=== PATIENT | female | born 1990 | race Caucasian/White ===

== ENCOUNTER 2020-08-12 08:00 | Inpatient (IN) ==
[2020-08-12] MEDS ORDERED: Lidocaine 1% 20 ML MDV ID PRN (09:16)
[2020-08-12] MEDS ORDERED: Famotidine 20 MG/2 ML VIAL IVP PRN (09:16)
[2020-08-12] MEDS ORDERED: Metoclopramide 10 MG/2 ML VIAL IVP PRN (09:16)
[2020-08-12] MEDS ORDERED: *HR* FentaNYL (PF) 100 MCG/2 ML VIAL IVP PRN (09:16)
[2020-08-12] MEDS ORDERED: Ondansetron 4 MG/2 ML VIAL IVP PRN (09:16)
[2020-08-12] MEDS ORDERED: Azithromycin 500 MG in 0.9 % Sodium Chloride 250 ML IVPB ONE (09:16)
[2020-08-12] MEDS ORDERED: Naloxone 0.4 MG/ML INJ IVP PRN (09:16)
[2020-08-12] MEDS ORDERED: miSOPROStoL 25 MCG TABLET PO PRN (09:20)
[2020-08-12] MEDS ORDERED: D5% in 0.45% NACL 1,000 ML IVC SCH (09:30)
[2020-08-12] MEDS ORDERED: Ringers Solution, Lactated 500 ML ONE (09:41)
[2020-08-12 10:23] LABS: Basophils # 0.1 K/mcL (0.0-0.2); Basophils % 0.7 %; Eosinophils # 0.1 K/mcL (0.0-0.6); Eosinophils % 1.5 %; Hematocrit 40.2 % (35.3-44.9); Hemoglobin 13.2 g/dL (11.5-15.4); Immature Granulocytes % 1.2 % (0-4); Lymphocytes # 1.3 K/mcL (0.6-4.6); Mean Corpuscular HGB Conc 32.8 g/dL (31.6-35.5); Mean Corpuscular Hemoglobin 28.5 pg (28.0-33.3); Mean Corpuscular Volume 86.8 fL (83.0-100.0); Mean Platelet Volume 10.9 fL (9.4-12.4); Monocytes # 0.6 K/mcL (0.0-1.3); Monocytes % 6.3 %; Neutrophils # 7.3 K/mcL (1.6-8.9); Platelet Count 162 K/mcL (140-400); Red Blood Count 4.63 M/mcL (3.82-4.97); Red Cell Distribution Width 14.4 % (11.5-14.5); Segmented Neutrophils % 76.3 %; White Blood Count 9.5 K/mcL (4.3-11.1)
[2020-08-12 10:42] LABS: Amphetamine Screen,Urine Negative ng/mL (Cutoff=1000); Barbiturate Screen,Urine Negative ng/mL (Cutoff=200); Benzodiazepines Screen,Urine Negative ng/mL (Cutoff=200); Cannabinoid Screen,Urine Negative ng/mL (Cutoff = 50); Cocaine Screen,Urine Negative ng/mL (Cutoff= 300); Opiate Screen,Urine Negative ng/mL (Cutoff=300); Phencyclidine Screen,Urine Negative ng/mL (Cutoff=25)
[2020-08-12] MEDS ORDERED: EPHEDrine 50 MG/ML VIAL IVP PRN (10:59)
[2020-08-12] MEDS ORDERED: Epidural Premix (fent/bupiv) 110 ML EP SCH (11:00)
[2020-08-12] MEDS ORDERED: Oxytocin 20 units/ LR 1000 mL 20 UNIT/1,000 ML BAG IVC SCH ×2 (15:15→22:14)
[2020-08-12] MEDS ORDERED: *HR* Ropivacaine/PF 0.5% 20 ML VIAL ONE (18:16)
[2020-08-12] MEDS ORDERED: Lanolin 7 G OINT...G. TP PRN (22:14)
[2020-08-12] MEDS ORDERED: Rho Immune Globulin 1,500 UNIT SYRINGE IM PRN (22:14)
[2020-08-12] MEDS ORDERED: Benzocaine/Menthol 56 GM AEROSOL SPRAY TP PRN (22:14)
[2020-08-12] MEDS: Ibuprofen 600 MG TABLET PO SCH (23:07)
[2020-08-12] MEDS: Acetaminophen 325 MG TABLET PO SCH (23:07)
[2020-08-13] MEDS: Ibuprofen 600 MG TABLET PO SCH ×2 (05:30→08:27)
[2020-08-13] MEDS: Acetaminophen 325 MG TABLET PO SCH (05:30)
[2020-08-13] MEDS ORDERED: Prenatal Vit/FA 1 EACH TABLET PO SCH (09:00)
[2020-08-13 16:22] VITALS: BP 100/67
== END 2020-08-13 18:41 | disposition home or self-care (01) | DRG 560 ==
LOC: 1NENULAB 08:06 → 1NENUOBS 22:18
PROVIDERS: ADMIT Obstetrics & Gynecology; ATTEND Obstetrics & Gynecology